=== PATIENT | female | born 1955 | race Caucasian/White ===

== ENCOUNTER 2025-10-26 13:01 | Emergency (ER) | payer SELFPAY ==
[~2025-10-26] VITALS: Ht 160 cm; Wt 91.0 kg
[2025-10-26 13:11] VITALS: TEMP 98.1; O2SAT 98
[2025-10-26 19:49] VITALS: BP 136/68; PULSE 77; RESP 18; O2SAT 98
== END 2025-10-26 19:50 ==
LOC: ER 13:01
DX: L02.91 Cutaneous abscess, unspecified (principal); L89.90 Pressure ulcer of unspecified site, unspecified stage; I10 Essential (primary) hypertension; F03.90 Unspecified dementia, unspecified severity, without behavioral disturbance, psychotic disturbance, mood disturbance, and anxiety; E78.00 Pure hypercholesterolemia, unspecified; D17.9 Benign lipomatous neoplasm, unspecified; M19.90 Unspecified osteoarthritis, unspecified site
CPT/HCPCS: 99285; Z7610; A4606